=== PATIENT | female | born 1980 | race Caucasian/White ===

== ENCOUNTER 2019-02-15 12:06 | Emergency (ER) | payer OTHER ==
[~2019-02-15] VITALS: Ht 172.7 cm; Wt 166.5 kg
[2019-02-15 12:13] VITALS: Ht 172.7 cm; Wt 166.5 kg
[2019-02-15 14:43] VITALS: BP 123/102
== END 2019-02-15 14:43 | disposition home or self-care (01) ==
LOC: ED 12:06
DX: I10 Essential (primary) hypertension (principal); R42 Dizziness and giddiness; R11.0 Nausea
CPT/HCPCS: J1885; Q0162

== ENCOUNTER 2019-12-08 11:56 | Emergency (ER) | payer OTHER ==
[~2019-12-08] VITALS: Ht 172.7 cm; Wt 167.4 kg
[2019-12-08 12:05] VITALS: Ht 172.7 cm; Wt 167.4 kg
[2019-12-08 15:17] VITALS: BP 120/72
== END 2019-12-08 14:30 | disposition home or self-care (01) ==
LOC: ED 11:56
DX: S93.402A Sprain of unspecified ligament of left ankle, initial encounter (principal); I10 Essential (primary) hypertension; W10.9XXA Fall (on) (from) unspecified stairs and steps, initial encounter; Y93.89 Activity, other specified; Y92.89 Other specified places as the place of occurrence of the external cause; Y99.8 Other external cause status
CPT/HCPCS: Q0092

== ENCOUNTER 2020-01-19 08:18 | Emergency (ER) | payer OTHER ==
[~2020-01-19] VITALS: Ht 167.6 cm; Wt 167.8 kg
[2020-01-19 08:22] VITALS: Ht 167.6 cm; Wt 167.8 kg
[2020-01-19 08:53] VITALS: BP 158/63
== END 2020-01-19 08:53 | disposition home or self-care (01) ==
LOC: ED 08:18
DX: O9A.211 Injury, poisoning and certain other consequences of external causes complicating pregnancy, first trimester (principal); I10 Essential (primary) hypertension; Z3A.13 13 weeks gestation of pregnancy